=== PATIENT | male | born 1980 | race Caucasian/White ===

== ENCOUNTER 2021-03-13 09:04 | Inpatient (IN) ==
[2021-03-13 11:06] LABS: Basophils % 0.1 % (0.0-0.8); Hematocrit 36.2 VOL% (42.0-52.0); Hemoglobin 11.9 GM/DL (14.0-18.0); Immature Granulocytes Absolute 0.19 #; Lymphocytes # 1.1 10*3/uL (1.4-4.0); Lymphocytes % 5.9 % (21.2-54.2); Mean Corpuscular HGB Conc 32.9 GM/DL (32-36); Mean Corpuscular Volume 85.2 FL (87-102); Mean Platelet Volume 8.9 FL (9.6-12.0); Monocytes % 11.4 % (1.7-12.7); Neutrophils % 81.6 % (38.7-73.9); Platelet Count 261 T/CUMM (130-400); Red Blood Count 4.25 MC/CUMM (3.8-5.5); Red Cell Distribution Width 13.3 % (9.3-17.3); White Blood Count 18.4 T/CUMM (4-12)
[2021-03-13 11:25] LABS: Albumin 3.7 G/DL (3.4-5.0); Bilirubin,Total 0.4 MG/DL (0.20-1.00); Calcium 9.1 MG/DL (8.5-10.1); Osmolality,Calculated 254.5 MOS/KG (273-304); Potassium 4.8 MMOL/L (3.5-5.1); Total Protein 8.3 G/DL (6.4-8.2)
[2021-03-13] MEDS ORDERED: SODIUM CHLORIDE 0.9% 1,000 ML IV STA (11:29)
[2021-03-13] MEDS ORDERED: ACETAMINOPHEN 325 MG TABLET PO PRN (12:36)
[2021-03-13] MEDS ORDERED: GLUCAGON 1 MG VIAL IM PRN (12:36)
[2021-03-13] MEDS ORDERED: BISACODYL 5 MG TABLET PO PRN (12:36)
[2021-03-13] MEDS ORDERED: ONDANSETRON 4 MG/2 ML VIAL IV PRN (12:36)
[2021-03-13] MEDS ORDERED: DEXTROSE 50% 25 GM/50 ML VIAL IV PRN (12:36)
[2021-03-13] MEDS ORDERED: ALPRAZolam 0.5 MG TABLET PO PRN (12:38)
[2021-03-13] MEDS ORDERED: hydrOXYzine HCL 25 MG TABLET PO PRN (12:38)
[2021-03-13] MEDS: ENOXAPARIN 40 MG/0.4 ML SYRINGE SUBCUT SCH (13:10)
[2021-03-13] MEDS: SODIUM CHLORIDE 0.9% 1,000 ML IV SCH ×2 (13:15→22:23)
[2021-03-13] MEDS: PHENobarbital 30 MG TABLET PO SCH ×3 (13:25→22:17)
[2021-03-13 17:31] LABS: Calcium 8.1 MG/DL (8.5-10.1); Osmolality,Calculated 257.4 MOS/KG (273-304); Potassium 4.2 MMOL/L (3.5-5.1)
[2021-03-13] MEDS ORDERED: PNEUMOCOCCAL VACCINE (13 VALENT) 0.5 ML SYRINGE IM ONE (21:54)
[2021-03-13] MEDS: busPIRone 10 MG TABLET PO SCH (22:01)
[2021-03-13] MEDS: INSULIN REGULAR 100 UNIT/ML SUBCUT SCH ×2 (22:15→22:30)
[2021-03-13] MEDS: levETIRAcetam 500 MG TABLET PO SCH (22:16)
[2021-03-13] MEDS: BENZTROPINE 1 MG TABLET PO SCH (22:16)
[2021-03-13] MEDS: ASENAPINE MALEATE 5 MG SL SCH (22:16)
[2021-03-13] MEDS: SODIUM CHLORIDE 1 GM TABLET PO SCH (22:17)
[2021-03-13] MEDS: GABAPENTIN 100 MG CAPSULE PO SCH (22:17)
[2021-03-14 06:30] LABS: Basophils % 0.1 % (0.0-0.8); Eosinophils % 0.1 % (0.00-10.9); Hematocrit 30.2 VOL% (42.0-52.0); Immature Granulocytes % 0.7 %; Immature Granulocytes Absolute 0.13 #; Lymphocytes # 1.4 10*3/uL (1.4-4.0); Lymphocytes % 7.7 % (21.2-54.2); Mean Corpuscular HGB Conc 32.5 GM/DL (32-36); Mean Corpuscular Volume 86.5 FL (87-102); Mean Platelet Volume 9.7 FL (9.6-12.0); Monocytes % 9.3 % (1.7-12.7); Neutrophils % 82.1 % (38.7-73.9); Platelet Count 257 T/CUMM (130-400); Red Blood Count 3.49 MC/CUMM (3.8-5.5); Red Cell Distribution Width 13.7 % (9.3-17.3); White Blood Count 18.2 T/CUMM (4-12)
[2021-03-14 06:32] LABS: Hemoglobin 9.8 GM/DL (14.0-18.0)
[2021-03-14 06:48] LABS: Alanine Aminotransferase 22 U/L (16-61); Albumin 2.8 G/DL (3.4-5.0); Alkaline Phosphatase 78 U/L (45-117); Aspartate Amino Transferase 19 U/L (0-37); Bilirubin,Total < 0.39 MG/DL (0.20-1.00); Blood Urea Nitrogen 17 MG/DL (7-18); Calcium 7.8 MG/DL (8.5-10.1); Carbon Dioxide 21 MMOL/L (21-32); Estimated Glom Filtration Rate 93 ML/MIN; Glucose 151 MG/DL (74-106); HDL Cholesterol 24 MG/DL (40-60); Osmolality,Calculated 264.8 MOS/KG (273-304); Sodium 130 MMOL/L (136-145); Total Protein 6.5 G/DL (6.4-8.2); Triglycerides 179 MG/DL (2-150); VLDL Cholesterol 35.8 MG/DL
[2021-03-14] MEDS ORDERED: VENLAFAXINE XR 75 MG CAPSULE PO SCH (09:00)
[2021-03-14] MEDS ORDERED: ROSUVASTATIN 10 MG TABLET PO SCH (09:00)
[2021-03-14] MEDS: levETIRAcetam 500 MG TABLET PO SCH ×2 (09:39→22:58)
[2021-03-14] MEDS: PHENobarbital 30 MG TABLET PO SCH ×4 (09:40→23:06)
[2021-03-14] MEDS: BENZTROPINE 1 MG TABLET PO SCH ×2 (09:40→22:58)
[2021-03-14] MEDS: SODIUM CHLORIDE 1 GM TABLET PO SCH ×2 (09:40→23:02)
[2021-03-14] MEDS: GABAPENTIN 100 MG CAPSULE PO SCH ×2 (09:40→22:57)
[2021-03-14] MEDS: SODIUM CHLORIDE 0.9% 1,000 ML IV SCH (09:47)
[2021-03-14 11:02] LABS: Urine Appearance Clear (Clear); Urine Color Yellow (Yellow)
[2021-03-14 11:03] LABS: Bilirubin,Urine Negative (Negative); Blood, Urine Trace mg/dL (Negative); Glucose,Urine (UA) 4+ mg/dL (Negative); Ketones,Urine 2+ mg/dL (Negative); Nitrite,Urine Negative (Negative); Protein,Urine 1+ MG/DL; RBC,Urine Rare /HPF (0-4); Urine Urobilinogen < 2.0 EU/DL (0.2-1.0)
[2021-03-14 11:04] LABS: Bacteria,Urine 4+ /HPF (Few)
[2021-03-14 11:12] LABS: Barbiturates Screen,Urine Positive (Negative); Benzodiazepines Screen,Urine Positive (Negative); Cannabinoid Screen,Urine Negative (Negative); Opiate Screen,Urine Negative (Negative); Phencyclidine Screen,Urine Negative (Negative)
[2021-03-14] MEDS: INSULIN REGULAR 100 UNIT/ML SUBCUT SCH ×4 (11:43→23:02)
[2021-03-14] MEDS: busPIRone 10 MG TABLET PO SCH ×2 (11:46→22:57)
[2021-03-14] MEDS ORDERED: SODIUM CHLORIDE 0.9% 1,000 ML IV ONE (12:32)
[2021-03-14] MEDS ORDERED: cefTRIAXone 1,000 MG in SODIUM CHLORIDE 0.9% 100 ML IV SCH (13:00)
[2021-03-14] MEDS: ENOXAPARIN 40 MG/0.4 ML SYRINGE SUBCUT SCH (13:31)
[2021-03-14 14:49] LABS: Basophils % 0.1 % (0.0-0.8); Eosinophils % 0.2 % (0.00-10.9); Hematocrit 30.1 VOL% (42.0-52.0); Hemoglobin 9.7 GM/DL (14.0-18.0); Immature Granulocytes % 0.5 %; Immature Granulocytes Absolute 0.08 #; Lymphocytes # 1.6 10*3/uL (1.4-4.0); Lymphocytes % 9.2 % (21.2-54.2); Mean Corpuscular HGB Conc 32.2 GM/DL (32-36); Mean Platelet Volume 9.1 FL (9.6-12.0); Monocytes % 8.8 % (1.7-12.7); Neutrophils % 81.2 % (38.7-73.9); Platelet Count 219 T/CUMM (130-400); Red Blood Count 3.46 MC/CUMM (3.8-5.5); Red Cell Distribution Width 13.6 % (9.3-17.3); White Blood Count 17.4 T/CUMM (4-12)
[2021-03-14] MEDS: ASENAPINE MALEATE 5 MG SL SCH ×2 (18:38→22:56)
[2021-03-15] MEDS: SODIUM CHLORIDE 0.9% 1,000 ML IV SCH ×2 (01:59→05:07)
[2021-03-15 05:16] LABS: Basophils % 0.1 % (0.0-0.8); Eosinophils # 0.1 10*3/uL (0.0-0.87); Eosinophils % 0.6 % (0.00-10.9); Hematocrit 27.7 VOL% (42.0-52.0); Hemoglobin 8.9 GM/DL (14.0-18.0); Immature Granulocytes % 0.4 %; Immature Granulocytes Absolute 0.05 #; Lymphocytes # 1.6 10*3/uL (1.4-4.0); Lymphocytes % 12.9 % (21.2-54.2); Mean Corpuscular HGB Conc 32.1 GM/DL (32-36); Mean Corpuscular Volume 86.6 FL (87-102); Mean Platelet Volume 9.5 FL (9.6-12.0); Monocytes % 8.9 % (1.7-12.7); Neutrophils % 77.1 % (38.7-73.9); Platelet Count 205 T/CUMM (130-400); Red Cell Distribution Width 13.3 % (9.3-17.3); White Blood Count 12.3 T/CUMM (4-12)
[2021-03-15 05:43] LABS: Albumin 2.6 G/DL (3.4-5.0); Bilirubin,Total 0.5 MG/DL (0.20-1.00); Calcium 7.9 MG/DL (8.5-10.1); Osmolality,Calculated 258.1 MOS/KG (273-304); Potassium 3.5 MMOL/L (3.5-5.1); Total Protein 6.3 G/DL (6.4-8.2)
[2021-03-15 09:17] VITALS: BP 145/65
== END 2021-03-15 10:20 | disposition home or self-care (01) | DRG 640 ==
LOC: N.ED 09:04 → N.EDINP 12:36 → N.4E 20:41
PROVIDERS: ADMIT Internal Medicine; ATTEND Internal Medicine